=== PATIENT | female | born 1955 | race Caucasian/White ===

== ENCOUNTER 2017-12-29 07:00 | Day surgery (SDC) | payer BC ==
[2017-12-29] MEDS ORDERED: Midazolam 1 MG/ML 2 ML SDV ONE (07:15)
[2017-12-29] MEDS ORDERED: fentaNYL 100 MCG/2 ML SDV ONE (07:15)
[2017-12-29] MEDS ORDERED: Propofol 200 MG/20 ML SDV ONE (07:15)
[2017-12-29] MEDS ORDERED: Glycopyrrolate 0.2 MG/ML 2 ML SDV IVPUSH ONE (08:00)
[2017-12-29] MEDS ORDERED: Dextrose 5%-Lactated Ringers 1,000 ML IV SCH (08:30)
[2017-12-29] MEDS ORDERED: Pantoprazole 40 MG Vial IVPUSH ONE (09:18)
[2017-12-29 10:35] VITALS: BP 141/96
--- NOTE | 2018-01-01 22:44 | OR ---
DATE OF PROCEDURE: 12/29/2017 PREOPERATIVE DIAGNOSIS: Complaint of laryngopharyngeal dysphagia. POSTOPERATIVE DIAGNOSES: 1. Laryngopharyngeal dysphagia associated with mild redness and edema of hypopharynx and larynx. 2. 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 3. Mild antral gastritis. OPERATIVE PROCEDURES: Esophagogastroduodenoscopy with 1. Antral biopsies for CLOtest. 2. Biopsies of esophagogastric junction for histologic evaluation. INDICATIONS FOR PROCEDURE: The patient is 8 years status post a laparoscopic Rochelle fundoplication. Recently, she is not having any heartburn symptoms, but is having some increased laryngopharyngeal dysphagia. She does take some ibuprofen, but is not presently on any stomach medications. Plan is to proceed with an upper GI endoscopy with biopsies as indicated. Potential risks including bleeding and perforation were discussed, and the patient wishes to proceed. DETAILS OF PROCEDURE: The patient was taken to the operating room and placed in a left lateral decubitus position. IV sedation was administered, after which the upper GI endoscope was passed orally through the length of the esophagus and into the stomach with retroflexion view of the fundus, and thereafter through the pyloric channel and duodenum to the junction of the third and fourth portions. Findings included some redness and edema, which were present, but fairly subtle and mild, and present in the hypopharynx and larynx. Otherwise, there were no anatomic abnormalities noted. As one passed into the upper esophageal sphincter, the esophageal body was grossly unremarkable. The patient was noted to have an intact Rochelle effect in the appropriate location. There was some mild inflammation of esophagogastric junction in terms of some redness and edema. 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 Within the stomach, there were no significant retained bile and no other food present. There appeared to be adequate gastric emptying occurring. The pyloric channel and duodenum were unremarkable. There was some mild antral gastritis without erosions. At this point, biopsies were obtained from the antrum and sent for CLOtest for H. pylori. Multiple biopsies were then obtained from the esophagogastric junction, focusing on the area of the columnar mucosa above the upper gastric folds. Minimal bleeding from the biopsy sites was seen and the procedure then concluded. At this point, the plan will be to schedule the patient for an x-ray swallow study with Speech Pathology evaluation regarding laryngopharyngeal dysphagia. We will also start her on Protonix 40 mg a day and give her 40 Protonix IV in the recovery room to initiate treatment. We will see her back in one month. If she is not improving at that point, we will consider ENT evaluation. Hayes Gutierrez MD /[id number]
== END 2017-12-29 10:40 | disposition home or self-care (01) ==
LOC: JP.SDS 07:00
PROVIDERS: ATTEND Surgery
DX: J38.4 Edema of larynx (principal); K20.9 Esophagitis, unspecified; K29.70 Gastritis, unspecified, without bleeding; I10 Essential (primary) hypertension; Z98.890 Other specified postprocedural states
CPT/HCPCS: 43239; 87081; C9113; J2250; J2704; J3010; J7042